=== PATIENT | female | born 1955 ===

== ENCOUNTER → 2022-08-20 | Outpatient (CLI) | payer OTHER | END | disposition home or self-care (01) | LOC: RAD 09:06 | PROVIDERS: ATTEND Physical Medicine & Rehabilitation | DX: M25.562 Pain in left knee (principal) ==

== ENCOUNTER 2022-11-19 14:07 | Outpatient (CLI) | payer OTHER | END 2022-11-19 14:09 | disposition home or self-care (01) | LOC: LAB 14:07 | PROVIDERS: ATTEND Obstetrics & Gynecology | DX: N30.00 Acute cystitis without hematuria (principal) ==

== ENCOUNTER 2023-11-27 12:49 | Outpatient (CLI) | payer OTHER | END 2023-11-27 12:54 | disposition home or self-care (01) | LOC: SONOGRAMA 12:49 | PROVIDERS: ATTEND Physical Medicine & Rehabilitation | DX: M25.512 Pain in left shoulder (principal) ==